=== PATIENT | female | born 1990 | race Caucasian/White ===

== ENCOUNTER 2021-04-23 08:23 | Outpatient (CLI) | payer OTHER | END 2021-04-23 08:24 | disposition home or self-care (01) | LOC: RAD-FRANK 08:23 | PROVIDERS: ATTEND Nurse Practitioner Family | DX: M25.532 Pain in left wrist (principal) ==

== ENCOUNTER 2022-01-15 15:50 | Outpatient (CLI) | payer BC | END 2022-01-15 15:51 | disposition home or self-care (01) | LOC: BICULT 15:50 | PROVIDERS: ATTEND Obstetrics & Gynecology | DX: N63.10 Unspecified lump in the right breast, unspecified quadrant (principal) ==

== ENCOUNTER 2022-06-03 12:36 | Outpatient (CLI) | payer BC | END 2022-06-03 12:37 | disposition home or self-care (01) | LOC: CT 12:36 | PROVIDERS: ATTEND Nurse Practitioner Family | DX: R51.9 Headache, unspecified (principal) | CPT/HCPCS: 70450 ==

== ENCOUNTER 2022-06-13 10:32 | Outpatient (CLI) | payer BC | END 2022-06-13 10:33 | disposition home or self-care (01) | LOC: BICRAD 10:32 | PROVIDERS: ATTEND Nurse Practitioner Family | DX: M54.2 Cervicalgia (principal) | CPT/HCPCS: 72040 ==